=== PATIENT | female | born 1985 | race Caucasian/White ===

== ENCOUNTER → 2021-10-29 | Outpatient (CLI) | payer MEDICAID, OTHER | LOC: M LAB 08:39 | PROVIDERS: ATTEND Advanced Practice Midwife | DX: O99.810 Abnormal glucose complicating pregnancy (principal) ==

== ENCOUNTER → 2021-11-05 | Outpatient (REF) | payer OTHER | LOC: M SFHCWAGY 16:45 | PROVIDERS: ATTEND Advanced Practice Midwife | DX: O09.513 Supervision of elderly primigravida, third trimester (principal) ==

== ENCOUNTER → 2021-12-08 | Outpatient (REF) | payer OTHER | LOC: M PLALAB 09:42 | PROVIDERS: ATTEND Specialist | DX: Z34.03 Encounter for supervision of normal first pregnancy, third trimester (principal) ==

== ENCOUNTER → 2021-12-08 | Outpatient (REF) | payer SELFPAY | LOC: M SFHCWAGY 16:58 | PROVIDERS: ATTEND Specialist | DX: Z36.85 Encounter for antenatal screening for Streptococcus B (principal) ==

== ENCOUNTER 2022-10-14 04:26 | Emergency (ER) | payer OTHER ==
[~2022-10-14] VITALS: Ht 165.1 cm; Wt 79.2 kg
[~2022-10-14 04:26] MED LIST: COLA100C5 PO; IBUP80TA PO; PERCOCET PO; PRENTAB9 PO
[2022-10-14] MEDS: ONDANSETRON 4MG 2ML VIAL IV ONE ×2 (07:00→07:10)
[2022-10-14] MEDS ORDERED: LIDOCAINE W/EPINEPHRINE 1% 20ML VIAL SC ONE ×2 (07:00→09:40)
[2022-10-14] MEDS ORDERED: MORPHINE 4 MG/ML 1ML VIAL IV ONE ×3 (07:00→09:30)
[2022-10-14] MEDS ORDERED: BOOSTRIX/ADACEL VACCINE (DIPHTH/PERTUSS/ACELL/TETANUS) 0.5ML SYR IM ONE (07:05)
[2022-10-14] MEDS ORDERED: NS 1,000 ML IV ONE (07:25)
[2022-10-14 07:53] LABS: HEMOGLOBIN 14.4 g/dl (12.0-15.5); MEAN CORPUSCULAR HEMOGLOBIN 30.3 pg (27.0-33.0); MEAN CORPUSCULAR HGB CONC 33.5 g/dl (32.0-36.5); MEAN CORPUSCULAR VOLUME 90.5 fl (80.0-96.0); PLATELET COUNT, AUTOMATED 375 10^3/uL (150-450); RED BLOOD COUNT 4.75 10^6/uL (4.00-5.40)
[2022-10-14] MEDS ORDERED: AMPICILLIN SOD/SULBACTAM SOD 3 GM in D5W MINI-BAG PLUS 100 ML IV ONE (08:15)
[2022-10-14] MEDS ORDERED: HYDR-3713 PO (11:06)
[2022-10-14] MEDS ORDERED: CEPH500C PO (11:06)
[2022-10-14 11:19] VITALS: BP 124/68
== END 2022-10-14 11:32 | disposition home or self-care (01) ==
LOC: EDBD 04:26 → M ED 04:26
DX: S51.812A Laceration without foreign body of left forearm, initial encounter (principal); S61.512A Laceration without foreign body of left wrist, initial encounter; S61.412A Laceration without foreign body of left hand, initial encounter; W01.0XXA Fall on same level from slipping, tripping and stumbling without subsequent striking against object, initial encounter; F17.200 Nicotine dependence, unspecified, uncomplicated; Y92.009 Unspecified place in unspecified non-institutional (private) residence as the place of occurrence of the external cause; Z79.899 Other long term (current) drug therapy

== ENCOUNTER → 2023-08-10 | Outpatient (CLI) | payer OTHER ==
[~2023-08-10] MED LIST changes: +CEPH500C PO; +HYDR-3713 PO
== END ==
LOC: M PLALAB 11:05
PROVIDERS: ATTEND Obstetrics & Gynecology
DX: Z34.80 Encounter for supervision of other normal pregnancy, unspecified trimester (principal)

== ENCOUNTER → 2023-08-10 | Outpatient (CLI) | payer OTHER ==
[2023-08-10 13:33] LABS: HEMATOCRIT 40.6 % (36.0-47.0); HEMOGLOBIN 13.2 g/dl (12.0-15.5); MEAN CORPUSCULAR HEMOGLOBIN 30.8 pg (27.0-33.0); MEAN CORPUSCULAR HGB CONC 32.5 g/dl (32.0-36.5); MEAN CORPUSCULAR VOLUME 94.6 fl (80.0-96.0); PLATELET COUNT, AUTOMATED 353 10^3/uL (150-450); RED BLOOD COUNT 4.29 10^6/uL (4.00-5.40); WHITE BLOOD COUNT 10.4 10^3/uL (4.0-10.0)
[2023-08-10 14:27] LABS: HIV 1&2 SCREEN NEGATIVE (NEGATIVE)
[2023-08-10 14:35] LABS: HEPATITIS C VIRUS ABY INDEX 0.04 INDEX (<0.8)
[2023-08-10 15:37] LABS: CHLAMYDIA DNA AMPLIFICATION NEGATIVE (NEGATIVE); GC DNA AMPLIFICATION NEGATIVE (NEGATIVE)
== END ==
LOC: M PLALAB 11:09
PROVIDERS: ATTEND Obstetrics & Gynecology
DX: O34.211 Maternal care for low transverse scar from previous cesarean delivery (principal); Z3A.00 Weeks of gestation of pregnancy not specified

== ENCOUNTER → 2023-10-21 | Outpatient (CLI) | payer OTHER, SELFPAY | LOC: M WHC 13:52 | PROVIDERS: ATTEND Obstetrics & Gynecology | DX: O34.211 Maternal care for low transverse scar from previous cesarean delivery (principal) ==

== ENCOUNTER → 2023-11-24 | Outpatient (CLI) | payer OTHER ==
[2023-11-24 17:35] LABS: HEMATOCRIT 37.1 % (36.0-47.0); HEMOGLOBIN 12.6 g/dl (12.0-15.5); MEAN CORPUSCULAR HEMOGLOBIN 30.8 pg (27.0-33.0); MEAN CORPUSCULAR VOLUME 90.7 fl (80.0-96.0); PLATELET COUNT, AUTOMATED 325 10^3/uL (150-450); RED BLOOD COUNT 4.09 10^6/uL (4.00-5.40); WHITE BLOOD COUNT 10.1 10^3/uL (4.0-10.0)
[2023-11-24 19:17] LABS: GC DNA AMPLIFICATION NEGATIVE (NEGATIVE)
== END ==
LOC: M PLALAB 15:45
PROVIDERS: ATTEND Obstetrics & Gynecology
DX: O34.211 Maternal care for low transverse scar from previous cesarean delivery (principal)

== ENCOUNTER → 2024-02-08 | Outpatient (CLI) | payer OTHER ==
[2024-02-08 17:54] LABS: HEMATOCRIT 37.5 % (36.0-47.0); HEMOGLOBIN 12.3 g/dl (12.0-15.5); MEAN CORPUSCULAR HEMOGLOBIN 28.7 pg (27.0-33.0); MEAN CORPUSCULAR HGB CONC 32.8 g/dl (32.0-36.5); MEAN CORPUSCULAR VOLUME 87.6 fl (80.0-96.0); PLATELET COUNT, AUTOMATED 341 10^3/uL (150-450); RED BLOOD COUNT 4.28 10^6/uL (4.00-5.40); WHITE BLOOD COUNT 10.4 10^3/uL (4.0-10.0)
[2024-02-08 18:17] LABS: URIC ACID 4.9 MG/DL (3.1-7.8)
[2024-02-08 18:19] LABS: LDH LACTATE DEHYDROGENASE 293 U/L (120-246)
[2024-02-08 18:20] LABS: ALT/SGPT 30 U/L (7.0-40); AST/SGOT 44 U/L (<34); BILIRUBIN,TOTAL 0.3 MG/DL (0.3-1.2); CREATININE FOR GFR 0.61 MG/DL (0.55-1.30); GLOMERULAR FILTRATION RATE > 60.0 (>60)
== END ==
LOC: M PLALAB 15:05
PROVIDERS: ATTEND Obstetrics & Gynecology
DX: O16.3 Unspecified maternal hypertension, third trimester (principal)

== ENCOUNTER → 2024-02-08 | Outpatient (REF) | payer OTHER | LOC: M PLALAB 15:44 | PROVIDERS: ATTEND Obstetrics & Gynecology | DX: Z36.89 Encounter for other specified antenatal screening (principal); Z3A.36 36 weeks gestation of pregnancy ==

== ENCOUNTER 2024-02-22 11:38 | Inpatient (IN) | payer OTHER ==
[2024-02-22] VITALS (15 sets, daily range): BP systolic 127–154; BP diastolic 71–95; TEMP 97; O2SAT 97–100
[~2024-02-22] VITALS: Ht 165.1 cm; Wt 94.4 kg
[2024-02-22] MEDS ORDERED: TUMS500C PO (12:12)
[2024-02-22] MEDS ORDERED: HOME MED LIST COMPLETE! XX SCH (12:15)
[2024-02-22] MEDS ORDERED: OXYTOCIN DRIP 30 UNITS in IV 1 EA IV PRN (12:30)
[2024-02-22] MEDS ORDERED: TRANEXAMIC ACID INJection 1,000 MG in NS 100 ML IV PRN (12:30)
[2024-02-22] MEDS ORDERED: CARBOPROST TROMETHAMINE 250 MCG/ML AMP IM PRN (12:30)
[2024-02-22] MEDS ORDERED: OXYTOCIN INJ 10UNITS/ML 1ML VIAL IM PRN (12:30)
[2024-02-22 12:31] LABS: HEMATOCRIT 38.4 % (36.0-47.0); HEMOGLOBIN 12.5 g/dl (12.0-15.5); MEAN CORPUSCULAR HEMOGLOBIN 28.7 pg (27.0-33.0); MEAN CORPUSCULAR HGB CONC 32.6 g/dl (32.0-36.5); MEAN CORPUSCULAR VOLUME 88.1 fl (80.0-96.0); PLATELET COUNT, AUTOMATED 291 10^3/uL (150-450); RED BLOOD COUNT 4.36 10^6/uL (4.00-5.40); WHITE BLOOD COUNT 9.4 10^3/uL (4.0-10.0)
[2024-02-22 12:50] LABS: URIC ACID 5.9 MG/DL (3.1-7.8)
[2024-02-22 12:52] LABS: LDH LACTATE DEHYDROGENASE 301 U/L (120-246)
[2024-02-22 12:53] LABS: ALT/SGPT 29 U/L (7.0-40); AST/SGOT 35 U/L (<34); BILIRUBIN,TOTAL 0.3 MG/DL (0.3-1.2); CREATININE FOR GFR 0.61 MG/DL (0.55-1.30); GLOMERULAR FILTRATION RATE > 60.0 (>60)
[2024-02-22] MEDS: LACTATED RINGER'S 1000 ML IV STA (12:58)
[2024-02-22] MEDS: LR 1,000 ML IV SCH ×3 (13:21→17:42)
[2024-02-22] MEDS: ceFAZolin SOD 2 GM in IV 1 EA IV ONE (13:21)
[2024-02-22] MEDS: BICITRA 30ML SOLN UDC PO ONE (13:21)
[2024-02-22 14:04] LABS: TOTAL PROTEIN,RANDOM URINE 57.4 MG/DL (0.0-14.0)
[2024-02-22 14:09] LABS: CREATININE,RANDOM URINE 32.6 MG/DL
[2024-02-22 14:31] LABS: HEPATITIS C VIRUS ABY INDEX 0.03 INDEX (<0.8)
[2024-02-22] MEDS ORDERED: MORPHINE PRES-FREE INJ 10 MG/10 ML VIAL As Ordered ONE (15:20)
[2024-02-22] MEDS ORDERED: ONDANSETRON 4MG 2ML VIAL As Ordered ONE (15:34)
[2024-02-22] MEDS ORDERED: OXYTOCIN INJ 10UNITS/ML 1ML VIAL As Ordered ONE (16:10)
[2024-02-22] MEDS ORDERED: TRANEXAMIC ACID 100 MG/ML 10ML VIAL As Ordered ONE (16:17)
[2024-02-22] MEDS ORDERED: OXYTOCIN 30UNITS IN 0.9% NaCl 500ML IV BAG As Ordered ONE (16:28)
[2024-02-22] MEDS ORDERED: ACETAMINOPHEN 1000MG 100ML IV BAG As Ordered ONE (16:30)
[2024-02-22] MEDS ORDERED: KETOROLAC 60MG 2ML VIAL As Ordered ONE (16:45)
[2024-02-22] MEDS ORDERED: ePHEDrine SULFATE 25 MG/5 ML(5MG/ML) SYRINGE As Ordered ONE (16:56)
[2024-02-22] MEDS ORDERED: PHENYLephrine 500MCG 5ML (100MCG/ML) SYRINGE As Ordered ONE (16:56)
[2024-02-22] MEDS ORDERED: ANUSOL HC CREAM 30GM TOP PRN (17:20)
[2024-02-22] MEDS ORDERED: RHO(D) IMMUNE GLOBULIN/MALTOSE 500MCG(2500IU)/2.2ML VIAL (WINRHO) IM SCH (17:20)
[2024-02-22] MEDS ORDERED: MORPHINE 4 MG/ML 1ML VIAL IV PRN (17:20)
[2024-02-22] MEDS ORDERED: ONDANSETRON 4MG 2ML VIAL IV PRN ×2 (17:20→17:35)
[2024-02-22] MEDS ORDERED: METOCLOPRAMIDE INJ 10MG/2ML VIAL IV PRN (17:35)
[2024-02-22] MEDS ORDERED: fentaNYL 100 MCG/2 ML INJECTION IV PRN (17:35)
[2024-02-22] MEDS ORDERED: oxyCODONE 5MG TAB PO PRN (17:35)
[2024-02-22] MEDS ORDERED: NALOXONE INJ 0.4MG/1ML VIAL IV PRN ×2 (17:35)
[2024-02-22] MEDS ORDERED: **NOTE PATIENT COMMENT** MISC XX SCH (17:35)
[2024-02-22] MEDS: SLF 3 ML SYR IV SCH (17:35)
[2024-02-22] MEDS: OXYTOCIN DRIP 30 UNITS in IV 1 EA IV SCH (17:43)
[2024-02-22] MEDS: diphenhydrAMINE 50MG/ML VIAL IV PRN (19:54)
[2024-02-22] MEDS: DOCUSATE SODIUM 100MG CAPSULE PO SCH (19:54)
[2024-02-22] MEDS: KETOROLAC 30 MG/ML 1ML VIAL IV SCH (22:53)
[2024-02-23 02:00] VITALS: BP 131/75; O2SAT 96
[2024-02-23 03:08] LABS: HEMATOCRIT 28.1 % (36.0-47.0); MEAN CORPUSCULAR HEMOGLOBIN 29.5 pg (27.0-33.0); MEAN CORPUSCULAR HGB CONC 33.5 g/dl (32.0-36.5); MEAN CORPUSCULAR VOLUME 88.1 fl (80.0-96.0); PLATELET COUNT, AUTOMATED 259 10^3/uL (150-450); RED BLOOD COUNT 3.19 10^6/uL (4.00-5.40); WHITE BLOOD COUNT 12.5 10^3/uL (4.0-10.0)
[2024-02-23 03:09] LABS: HEMOGLOBIN 9.4 g/dl (12.0-15.5)
[2024-02-23 03:34] LABS: ALBUMIN 1.7 G/DL (3.2-5.2); ALKALINE PHOSPHATASE 166 U/L (46-116); ALT/SGPT 22 U/L (7.0-40); AST/SGOT 26 U/L (<34); BILIRUBIN,TOTAL 0.2 MG/DL (0.3-1.2); BLOOD UREA NITROGEN 12 MG/DL (9-23); CALCIUM LEVEL 7.7 MG/DL (8.5-10.1); CARBON DIOXIDE LEVEL 22 MMOL/L (20-31); CHLORIDE LEVEL 107 MMOL/L (98-107); CREATININE FOR GFR 0.66 MG/DL (0.55-1.30); GLOMERULAR FILTRATION RATE > 60.0 (>60); GLUCOSE, FASTING 119 MG/DL (60-100); POTASSIUM SERUM 4.2 MMOL/L (3.5-5.1); SODIUM LEVEL 134 MMOL/L (136-145); TOTAL PROTEIN 4.4 G/DL (5.7-8.2)
[2024-02-23] MEDS ORDERED: LR 500 ML IV ONE (04:35)
[2024-02-23] MEDS: CALCIUM CARBONATE 500 MG CHEW U/D PO PRN (04:53)
[2024-02-23 05:55] VITALS: BP 130/74; O2SAT 95
[2024-02-23] MEDS: PRENATAL VITAMINS CHEWABLE TABLET PO SCH (08:35)
[2024-02-23] MEDS: FERROUS SULFATE 325MG TAB PO SCH (08:35)
[2024-02-23] MEDS: PERCOCET 5MG/325MG TAB PO PRN (08:36)
[2024-02-23 10:00] VITALS: BP 132/69; O2SAT 97
[2024-02-23 14:00] VITALS: BP 139/84; O2SAT 98
[2024-02-23 18:00] VITALS: BP 139/82; O2SAT 99
[2024-02-23] MEDS: IBUPROFEN 800 MG TAB PO SCH (18:35)
[2024-02-23] MEDS: SIMETHICONE 80MG CHEW TAB PO PRN (18:39)
[2024-02-23 22:00] VITALS: BP 129/62; O2SAT 97
[2024-02-24 02:00] VITALS: BP 119/68; O2SAT 98
[2024-02-24 06:00] VITALS: BP 125/69; O2SAT 99
[2024-02-24] MEDS: MEASLES,MUMPS,RUBELLA VACCINE INJ (MMR-II) SC.IMMUN ONE (08:58)
[2024-02-24 10:00] VITALS: BP 128/68; O2SAT 100
[2024-02-24] MEDS: PERCOCET 5MG/325MG TAB PO PRN (10:57)
[2024-02-24 14:00] VITALS: BP 118/71; O2SAT 98
[2024-02-24 18:00] VITALS: BP 142/89; O2SAT 99
[2024-02-24] MEDS: MOM 30ML SUSPENSION UDC PO PRN (21:00)
[2024-02-24 22:00] VITALS: BP 142/84; O2SAT 98
[2024-02-25 02:00] VITALS: BP 122/58; O2SAT 98
[2024-02-25 06:00] VITALS: BP 124/70; O2SAT 97
== END 2024-02-25 13:45 | disposition home or self-care (01) | DRG 540 ==
LOC: M LDO 11:38 → M LDI 11:55 → M OBS 18:32
PROVIDERS: ADMIT Advanced Practice Midwife; ATTEND Obstetrics & Gynecology
PROC: 0UB70ZZ Excision of Bilateral Fallopian Tubes, Open Approach (ICD-10-PCS; 2024-02-22)
PROC: 10D00Z1 Extraction of Products of Conception, Low, Open Approach (ICD-10-PCS; principal; 2024-02-22 16:16)
DX: O34.211 Maternal care for low transverse scar from previous cesarean delivery (principal); Z30.2 Encounter for sterilization; Z3A.38 38 weeks gestation of pregnancy; O14.04 Mild to moderate pre-eclampsia, complicating childbirth; Z37.0 Single live birth

== ENCOUNTER → 2024-05-31 | Outpatient (REF) | payer OTHER ==
[~2024-05-31] MED LIST changes: +TUMS500C PO
[2024-06-02 13:46] LABS: HPV APTIMA Not Detected (Not Detected)
== END ==
LOC: M SFHCWAGY 15:01
PROVIDERS: ATTEND Obstetrics & Gynecology
DX: Z12.4 Encounter for screening for malignant neoplasm of cervix (principal)